=== PATIENT | male | born 1975 | race Caucasian/White ===

== ENCOUNTER → 2017-03-25 | Outpatient (REF) ==
--- NOTE | 2017-03-26 01:41 | REP ---
Clinical: Pain and disability. Technique: AP, lateral, bilateral oblique and sunrise views of the right knee. Findings: Mild age-related changes are appreciated including subtle cortical irregularity to the femoral condyles as well as minimally increased sclerosis to the tibial plateau and small lateral spur formation along the lateral margin of the patella on sunrise view with minimal lateral patellofemoral joint space narrowing. No acute fracture or dislocation. AP views demonstrate small bony defect along the lateral collateral ligament which may reflect old avulsion injury. No effusion. No significant soft tissue swelling. Impression: Mild arthritic degenerative changes. Signed by Edin Mitchell MD 03/26/2017 01:33 A
== END ==
LOC: M SMT 15:12
PROVIDERS: ATTEND Internal Medicine
DX: M19.90 Unspecified osteoarthritis, unspecified site (principal)